=== PATIENT | female | born 2005 | race Caucasian/White ===

== ENCOUNTER 2024-01-09 17:18 | Inpatient (IN) | payer SELFPAY ==
[2024-01-09] MEDS ORDERED: Nalbuphine 10 MG/ML Syringe IVPUSH PRN (17:54)
[2024-01-09] MEDS ORDERED: Sodium Chloride 0.9% 10 ML Syringe FLUSH PRN (17:54)
[2024-01-09] MEDS ORDERED: Ondansetron 4 MG Tab.DIS PO PRN (17:54)
[2024-01-09] MEDS ORDERED: Lidocaine 1% 50 ML MDV INJECT PRN (17:54)
[2024-01-09 18:19] LABS: BASOPHILS PERCENT AUTO 0.2 % (0.0-1.0); EOSINOPHILS PERCENT AUTO 0.1 % (0.0-6.0); HEMATOCRIT 36.1 % (37.0-47.0); HEMOGLOBIN 12.6 gm/dl (12.0-16.0); IMMATURE GRAN ABSOLUTE AUTO 0.09 K/mm3 (0.00-0.05); IMMATURE GRAN PERCENT AUTO 0.6 % (0.0-0.4); LYMPHOCYTES ABSOLUTE AUTO 1.1 K/mm3 (1.0-4.8); LYMPHOCYTES PERCENT AUTO 7.3 % (24.0-44.0); MEAN CORPUSCULAR HEMOGLOBIN 31.4 pg (28.0-32.0); MEAN CORPUSCULAR HGB CONC 34.9 g/dl (32.0-36.0); MEAN PLATELET VOLUME 11.4 fl (9.4-12.3); MONOCYTES ABSOLUTE AUTO 0.5 K/mm3 (0.0-0.8); NEUTROPHILS ABSOLUTE AUTO 13.3 K/mm3 (1.8-7.7); NEUTROPHILS PERCENT AUTO 88.8 % (41.0-71.0); PLATELET COUNT,PLT 189 K/mm3 (150-400); RED BLOOD CELL COUNT 4.01 M/mm3 (4.10-5.30); WHITE BLOOD CELL COUNT,WBC 14.97 K/mm3 (3.9-11.3)
[2024-01-09] MEDS: Oxytocin 10 Units/1 ML SDV IM ONE (23:49)
[2024-01-10] MEDS ORDERED: Docusate Sodium 100 MG Cap PO PRN (00:22)
[2024-01-10] MEDS: Ibuprofen 600 MG Tab PO SCH (00:26)
[2024-01-10] MEDS: Benzocaine/Menthol 20%-0.5% Spray 78 GM Cannister TOP PRN (02:04)
[2024-01-10] MEDS: Witch Hazel Medicated Pads 40/Jar TOP PRN (02:04)
[2024-01-10] MEDS: Sodium Chloride 0.9% 10 ML Syringe FLUSH SCH (07:59)
[2024-01-10] MEDS: Oxytocin 10 Units/1 ML SDV ONE (07:59)
[2024-01-10] MEDS: Acetaminophen 325 MG Tab PO PRN (16:21)
== END 2024-01-11 11:00 | disposition home or self-care (01) | DRG 807 ==
LOC: JD.OBCHECK 17:18 → JD.OB 17:19 → JD.OBCHECK 17:55 → JD.OB 17:56 → OBSVTOIN 01-10 00:05 → JD.OB 01-10 00:06
PROVIDERS: ADMIT Obstetrics & Gynecology; ATTEND Obstetrics & Gynecology
PROC: 10E0XZZ Delivery of Products of Conception, External Approach (ICD-10-PCS; principal; 2024-01-10)
DX: O48.0 Post-term pregnancy (principal); Z37.0 Single live birth; Z3A.41 41 weeks gestation of pregnancy
CPT/HCPCS: 36415; 59025; 59409; 85025; 86592; 86850; 86900; 86901; A9270-GY; J2590

== ENCOUNTER 2025-01-23 10:50 | Inpatient (IN) | payer SELFPAY ==
[2025-01-23] MEDS ORDERED: Ondansetron 4 MG/2 ML SDV IVPUSH PRN (11:05)
[2025-01-23] MEDS ORDERED: Nalbuphine 10 MG/1 ML Vial IVPUSH PRN (11:05)
[2025-01-23] MEDS ORDERED: Oxytocin 10 Units/1 ML SDV IM ONE (11:05)
[2025-01-23] MEDS ORDERED: Lactated Ringers 1,000 ML IV SCH (11:15)
[2025-01-23 11:45] LABS: BASOPHILS ABSOLUTE AUTO 0.0 K/mm3 (0.0-0.2); BASOPHILS PERCENT AUTO 0.2 % (0.0-1.0); EOSINOPHILS ABSOLUTE AUTO 0.0 K/mm3 (0.0-0.4); EOSINOPHILS PERCENT AUTO 0.1 % (0.0-6.0); IMMATURE GRAN ABSOLUTE AUTO 0.09 K/mm3 (0.00-0.05); IMMATURE GRAN PERCENT AUTO 0.8 % (0.0-0.4); LYMPHOCYTES ABSOLUTE AUTO 1.1 K/mm3 (1.0-4.8); LYMPHOCYTES PERCENT AUTO 9.5 % (24.0-44.0); MEAN PLATELET VOLUME 11.7 fl (9.4-12.3); MONOCYTES ABSOLUTE AUTO 0.4 K/mm3 (0.0-0.8); MONOCYTES PERCENT AUTO 3.2 % (0.0-8.0); NEUTROPHILS ABSOLUTE AUTO 9.8 K/mm3 (1.8-7.7); NEUTROPHILS PERCENT AUTO 86.2 % (41.0-71.0); NRBC ABSOLUTE 0.00 (0.00-0.02); NRBC PERCENT 0.0 % (0.0-0.2); PLATELET COUNT,PLT 226 K/mm3 (150-400); RED BLOOD CELL COUNT 4.06 M/mm3 (4.10-5.30); WHITE BLOOD CELL COUNT,WBC 11.41 K/mm3 (3.9-11.3)
[2025-01-23] MEDS ORDERED: Benzocaine/Menthol 20%-0.5% Spray 78 GM Cannister TOP PRN (13:51)
[2025-01-23] MEDS ORDERED: Witch Hazel Medicated Pads 40/Jar TOP PRN (13:51)
[2025-01-23] MEDS: Oxytocin/0.9 % Sodium Chloride 30 UNIT/500 ML BAG IV SCH (14:12)
== END 2025-01-24 15:50 | disposition home or self-care (01) | DRG 807 ==
LOC: JD.OBCHECK 10:50 → JD.OB 10:51 → JD.OBCHECK 11:05 → OBSVTOIN 13:26 → JD.OB 13:27
PROVIDERS: ADMIT Obstetrics & Gynecology; ATTEND Obstetrics & Gynecology
PROC: 10E0XZZ Delivery of Products of Conception, External Approach (ICD-10-PCS; principal; 2025-01-23)
PROC: 4A1HXCZ Monitoring of Products of Conception, Cardiac Rate, External Approach (ICD-10-PCS; 2025-01-23)
DX: O48.0 Post-term pregnancy (principal); Z37.0 Single live birth; Z3A.40 40 weeks gestation of pregnancy
CPT/HCPCS: 36415; 59025; 59409; 85025; 86592; 86850; 86900; 86901; A9270-GY; J7999